=== PATIENT | female | born 1995 ===

== ENCOUNTER → 2020-03-31 | Outpatient (CLI) | payer SELFPAY ==
--- NOTE | 2020-03-31 12:41 | WOMENS IMAGING REPORT ---
EXAM DESCRIPTION: U/S PELVIS NON-OB IMAGES COMPLETED DATE/TIME: 03/31/2020 11:52 am REASON FOR STUDY: N92.0 EXCESSIVE AND FREQUENT MENSTRUATION WITH REGULAR CYCLE N92.0 EXCESSIVE AND FREQUENT MENSTRUATION WITH REGULAR CYCLE COMPARISON: None. TECHNIQUE: Dynamic and static grayscale images acquired of the pelvis via transabdominal approach an d recorded on PACS. Additional selected color Doppler and spectral images recorded. LIMITATIONS: None. FINDINGS: UTERUS: Contour normal. No mass. ENDOMETRIAL STRIPE: No focal or generalized thickening. No masses. CERVIX: A nabothian cyst is present. RIGHT OVARY AND DOPPLER: Normal size. No worrisome masses. Normal arterial vascular flow without evid ence for torsion. LEFT OVARY AND DOPPLER: Normal size. No worrisome masses. Normal arterial vascular flow without evide nce for torsion. FREE FLUID: None noted. OTHER: No other significant finding. MEASUREMENTS: UTERUS: 7.8 x 3.1 x 4.3 cm. ENDOMETRIAL STRIPE: 5.5 mm. RIGHT OVARY: 2.9 x 2.7 x 2.9 cm. LEFT OVARY: 2.5 x 2 x 2.7 cm. IMPRESSION: The study is essentially normal. There is a nabothian cyst. TECHNICAL DOCUMENTATION: JOB ID: [id number] 2010 [employer]- All Rights Reserved Rev-09/13 Reading location - IP/workstation name: [email or web address]
== END ==
LOC: WI 10:07
PROVIDERS: ATTEND Midwife
DX: N92.0 Excessive and frequent menstruation with regular cycle (principal); N88.8 Other specified noninflammatory disorders of cervix uteri
CPT/HCPCS: 76856